=== PATIENT | male | born 1955 | race Caucasian/White ===

== ENCOUNTER 2016-11-18 10:08 | Observation (INO) | payer BC ==
--- NOTE | ~2016-11-18 | EKG ---
PATIENT: IVANNA NUNN UNIT #: [id number] Ventricular Rate: 97 BPM Atrial Rate: 97 BPM P-R Interval: 140 ms QRS Duration: 88 ms Q-T Interval: 360 ms QTC Calculation(Bezet): 457 ms P [place]: 41 degrees Calculated R [place]: 49 degrees Calculated T [place]: 15 degrees Diagnosis Line: Normal sinus rhythm Diagnosis Line: Normal ECG Diagnosis Line: No previous ECGs available Diagnosis Line: Confirmed by RAMBO CID MD ([id number]) on Diagnosis Line: 11/19/2016 3:59:11 PM INTERPRETING MD: LETI
--- NOTE | ~2016-11-18 | HP ---
Unit #: [id number] #: [id number] Patient: IVANNA NUNN [id number] [address] [place], [place] [address] [id number] I MR#: [id number] NAME: IVANNA NUNN ROOM: 316 Age: 61 Sex: M Admission Date: 11/18/2016 : 1955 Attending Physician: Naa Finley M.D. Primary Care Physician: No Primary Care Physician HISTORY AND PHYSICAL CHIEF COMPLAINT Dizziness. HISTORY OF PRESENT ILLNESS The patient is a 61-year-old male with a history of hypertension, brought to the emergency room complaining of the feeling off balance associated with the trouble seeing. The patient was also found to have slurred speech at the time of arrival. Patient had a CT of the head that showed the hypotonation in the right basal ganglia concerning for the old lacunar strokes. The patient is being admitted for the above reasons. The patient denies any history of trauma. The patient stated the patient has been having the symptoms, started yesterday and have been gradually worsening to the point that the patient was brought to the emergency room. PAST MEDICAL HISTORY History of hypertension. PAST SURGICAL HISTORY None. HOME MEDICATIONS None. ALLERGIES No known drug allergies. SOCIAL HISTORY Patient used to smoke tobacco 30 years ago for a [id number] history and alcohol, drinks beers on occasion. No history of illicit drug abuse. FAMILY HISTORY Reviewed and none. REVIEW OF SYSTEMS Fourteen-point review of symptoms performed and only pertinent positive findings as described above, remaining are negative. PHYSICAL EXAMINATION GENERAL APPEARANCE: On examination the patient is lying on a bed not in acute distress. VITAL SIGNS: Temperature 97.7, pulse 101, respiratory rate 16, blood pressure 238/130, sating 100% at room air. HEENT: Head atraumatic/normocephalic. Pupils equal, round and reacting Unit #: [id number] #: [id number] Patient: IVANNA NUNN to light and accommodation. Extraocular movements are intact. NECK: Supple. LUNGS: Decreased air entry at the bases. HEART: Regular rate and rhythm. ABDOMEN: Soft, positive bowel sounds. EXTREMITIES: No cyanosis. No clubbing. NEUROLOGIC: Awake, alert and oriented/. Patient has a dysarthria plus a nystagmus and ataxia. DIAGNOSTIC STUDIES LABORATORY DATA: Lipid profile shows cholecystectomy 332, triglycerides 280, LDL 234 and HDL 42. TSH 2.34, C-reactive protein less than 0.05, glucose 120, sodium 137, potassium 3.7, chloride 103, bicarb 25, glucose 132, BUN 11, creatinine 0.9, AST 22, ALT 27, alkaline phosphatase 67. WBC 14.9, hemoglobin 17, hematocrit 51.4 and platelet 390. IMAGING: MRI of the brain shows no acute intracranial findings and microvascular ischemic changes. CT of the head shows a hypodense area in the right basal ganglia concerning for lacunar strokes. ASSESSMENT 1. Transient ischemic attack, rule out a stroke. 2. Hypertensive urgency. 3. Leukocytosis. PLAN Plan to admit the patient to the observation with the telemetry. Patient has been seen by Neurology and recommended the MRI. Patient will be seen by Cardiology for the hypertensive urgency and the hyperlipidemia and check the lactic acid level and UA and initiate the sepsis protocol as the lactate is high and further recommendations will follow. Dictated by Diane Pa/robert TD: 11/18/2016 16:57 JOB #: [id number] HISTORY AND PHYSICAL Page 1 of 1 X NAA FINLEY MD X HISTORY AND PHYSICAL
--- NOTE | ~2016-11-18 | EKG ---
PATIENT: IVANNA NUNN UNIT #: [id number] Ventricular Rate: 62 BPM Atrial Rate: 62 BPM P-R Interval: 144 ms QRS Duration: 82 ms Q-T Interval: 416 ms QTC Calculation(Bezet): 422 ms P [place]: 39 degrees Calculated R [place]: 44 degrees Calculated T [place]: 27 degrees Diagnosis Line: Normal sinus rhythm Diagnosis Line: Normal ECG Diagnosis Line: When compared with ECG of 18-NOV-2016 10:34, Diagnosis Line: (unconfirmed) Diagnosis Line: Vent. rate has decreased BY 35 BPM Diagnosis Line: Confirmed by RAMBO CID MD ([id number]) on Diagnosis Line: 11/19/2016 4:13:10 PM INTERPRETING MD: LETI
--- NOTE | ~2016-11-18 | DS ---
Unit #: [id number] #: [id number] Patient: IVANNA NUNN [id number] [facility] [address]. [place], [place] [address] [id number] MR#: [id number] NAME: IVANNA NUNN ROOM: 316 Age: 61 Sex: M Admission Date: 11/18/2016 : 1955 Discharge Date: 11/19/2016 Attending Physician: Idalmis Fairbanks M.D. Primary Care Physician: No Primary Care Physician DISCHARGE SUMMARY DIAGNOSIS ON ADMISSION Transient ischemic attack. DIAGNOSES ON DISCHARGE 1. Transient ischemic attack. 2. History of hypertension. 3. Left vertebral artery stenosis. 4. Basilar artery stenosis. 5. PICA stenosis. CONSULTATIONS Dr. Bergeron in neurology consultation. DIAGNOSTIC STUDIES LABS: The patient's creatinine is 0.7, sodium 140, potassium 3.5. The patient's total cholesterol is 332, triglycerides 280, LDL 234, HDL 42. AST and ALT are within normal limits. WBC is 14.9, hemoglobin 15.5, platelet count 338. Hemoglobin A1C was 5.5. Troponin is less than 0.03. Vitamin B12 level was 368. IMAGING: The patient's MRI of the brain did not reveal any evidence of acute stroke. MRA of neck did not reveal any hemodynamically significant stenosis in bilateral internal carotid arteries. MRA head, as per neurology, had left vertebral stenosis, basilar artery stenosis and PICA stenosis. HOSPITAL COURSE This 61-year-old patient was admitted to [facility] with TIA. Details are as per admission H and P. The patient had extensive workup done, which did not reveal acute stroke, but the patient has left vertebral artery and basilar artery stenosis. Dr. Bergeron has recommended the patient to follow up with [facility] stroke team for vertebral and basilar artery stenosis. He has also added Plavix to his regimen. The patient is feeling much better and is anxious to go home. I have discussed with the patient and his , and she stated that the patient can follow up on leukocytosis with his primary care physician. The patient does not have any signs or symptoms of active infection. His urinalysis was negative. The patient did not have any chest x-ray, but Unit #: [id number] #: [id number] Patient: IVANNA NUNN he does not have any symptoms of pneumonia. Therefore, we will have the patient follow up with primary care physician in 4-5 days and have a CBC and a BMP done for followup on leukocytosis. The patient is also advised to call our office on Tuesday for two-D echo results. The patient is advised to follow up with [facility] stroke team, as recommended by Dr. Bergeron. The patient stated that he does not have a family doctor, but the patient's goes to [facility], and she will make him an appointment there. I also discussed with the patient's daughter, and she will ensure that the patient follows up with primary care with a repeat CBC done. She is aware of possibility of underlying malignancies, like leukemia. The patient is advised to have a fasting lipid profile and LFTs with primary care physician in 6 weeks. MEDICATIONS ON DISCHARGE 1. Norvasc 2.5 mg p.o. daily. 2. Metoprolol 25 mg p.o. b.i.d. 3. Lipitor 80 mg p.o. q.h.s. 4. Enteric-coated aspirin 325 mg p.o. daily. 5. Plavix 75 mg p.o. daily. Dictated by... Diane Washburn/nick TD: 11/22/2016 09:49 JOB #: [id number] CC: [facility]roke Team. Robert Ribera M.D. DISCHARGE SUMMARY Page 1 of 1 X Idalmis Fairbanks MD DISCHARGE SUMMARY
--- NOTE | ~2016-11-18 | CT71 ---
[facility] A Service of [facility] RADIOLOGY TEXT RESULTS PATIENT: IVANNA NUNN LOCATION: [facility] : 55 UNIT #: [id number] AGE: [address]: Idalmis Fairbanks MD SEX: M ORDER DR: [id number] [facility] [address] [place], [place] [address] [id number] I MR#: [id number] Acc #: [id number] NAME: IVANNA NUNN. : 1955 SEX: M STUDY DATE/TIME: 11/18/2016 11:01 UNIT: [facility] PCU ROOM: [facility] STUDY DESCRIPTION: CT Head Wo Contrast Attending Physician: Nahun Finley M.D. Ordering Physician: Hector Ng D.O. Primary Care Physician: No Primary Care Physician MEDICAL IMAGING REPORT This report is preliminary unless electronic signature is present EXAM CT brain without contrast media HISTORY Unable to focus dizzy for 3 days, nausea and vomiting. TECHNIQUE Axial imaging of the brain was performed without contrast media. This CT exam was performed with one or more of the following radiation dose reduction techniques: automatic control, adjustment of mA and/or kV according to patient size, and iterative reconstruction. COMPARISON There are no prior studies for comparison. FINDINGS Ventricular size and configuration is normal. No intra or extraaxial mass lesions, fluid collections or mass effect are seen. There is an area of low attenuation identified in the right basal ganglia. This conceivably could represent a prominent perivascular space. There is no mass effect. There is no evidence of hemorrhage. Paranasal sinuses and mastoid air cells are clear. CONCLUSION Area of low attenuation in the right basal ganglia which could represent either a small chronic lacunar infarction or more likely a prominent perivascular space. CT of the brain is otherwise normal Dictated by... Wes Aly M.D. THIS IS AN ELECTRONICALLY VERIFIED REPORT [facility] A Service of [facility] RADIOLOGY TEXT RESULTS PATIENT: IVANNA NUNN LOCATION: [facility] 316 : 55 UNIT #: [id number] AGE: [address]: Idalmis Fairbanks MD SEX: M ORDER DR: Wes Aly M.D. at 11/23/2016 7:14 AM MICHEL/abdullahi TD: 11/18/2016 13:07 JOB #: [id number] MEDICAL IMAGING REPORT Page 1 of 1 COPY
--- NOTE | ~2016-11-18 | MR122 ---
[facility] A Service of [facility] RADIOLOGY TEXT RESULTS PATIENT: IVANNA NUNN LOCATION: A 316-01 : 55 UNIT #: [id number] AGE: [address]: Idalmis Fairbanks MD SEX: M ORDER DR: [id number] [facility] [address] [place], [place] [address] [id number] I MR#: [id number] Acc #: [id number] NAME: IVANNA NUNN : 1955 SEX: M STUDY DATE/TIME: 11/18/2016 14:27 UNIT: A PCU ROOM: [facility] STUDY DESCRIPTION: MR MRA Head Wo Contrast Attending Physician: Nahun Finley M.D. Ordering Physician: Jesus Bergeron M.D. Primary Care Physician: No Primary Care Physician MRI CENTER REPORT This report is preliminary unless electronic signature is present. EXAM MR angiogram of the head, without contrast, 11/18/2016. COMPARISON MRI brain and MRA neck, 11/18/2016. HISTORY Slurred speech and dysarthria with imbalance for the last 1-2 days. Cannot focus, dizziness and chills. FINDINGS Motion artifact limits evaluation of the source images and, hence, the reformats. Visualized bilateral intracranial internal carotid arteries and basilar artery demonstrate irregularity, related to varying degrees of atherosclerotic disease. There is probably mild to moderate focal short segment of stenosis involving the mid to distal left petrous ICA (short segment) and proximal basilar artery involving a short 5-mm or smaller segment. No significant distal flow limitation is seen. Bilateral anterior and middle cerebral arteries are grossly unremarkable without severe stenosis. Mild atherosclerotic disease cannot be excluded. Small A-COM is seen. Well-defined PCOMs are not seen. Bilateral posterior cerebral arteries demonstrate mild focal tiny segment of stenosis in the presumed right P1-P2 junction. No distal flow limitation. The right vertebral artery feeds the basilar artery. Left vertebral artery is very hypoplastic, and it further significantly decreases after the takeoff of the left PICA. IMPRESSION 1. Focal short segment of moderate stenosis is suspected in the proximal basilar artery and probably mild to moderate stenosis in the short mid aspect of the left petrous ICA, extending towards the distal portion close to the cavernous segment. [facility] A Service of [facility] RADIOLOGY TEXT RESULTS PATIENT: IVANNA NUNN LOCATION: C3A 316-01 : 55 UNIT #: [id number] AGE: [address]: Idalmis Fairbanks MD SEX: M ORDER DR: 2. Left vertebral artery is not well-seen. It is probably very hypoplastic. It further decreases in caliber significantly after the takeoff of the left PICA. This could be related to congenital appearance. Superimposed atherosclerotic disease cannot be excluded. 3. Mild short tiny segment of mild to moderate stenosis is seen in the right posterior cerebellar artery, at the presumed P1-PT junction. Right P-COM is not seen. 4. No significant aneurysm or arteriovenous malformation. Dictated by... Rios Taylor M.D. THIS IS AN ELECTRONICALLY VERIFIED REPORT Rios Taylor M.D. at 11/22/2016 10:25 PM CPR/mona TD: 11/18/2016 16:48 JOB #: [id number] MRI CENTER REPORT Page 1 of 1 COPY
--- NOTE | ~2016-11-18 | CO ---
Unit #: [id number] #: [id number] Patient: IVANNA NUNN [id number] [facility]. [address] [place], [place] [address] [id number] I MR#: [id number] NAME: IVANNA NUNN. ROOM: [facility] Age: 61 Sex: M Admission Date: 11/18/2016 : 1955 Attending Physician: Idalmis Fairbanks M.D. Primary Care Physician: No Primary Care Physician Consultation Date: 11/19/2016 CONSULTATION REPORT REASON FOR CONSULTATION Hypertension. HISTORY OF PRESENT ILLNESS This is a 61-year-old white male, new to our practice, with no significant past medical history. 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 He does not take any medications at home. He has no known past medical history. He is reformed smoker and quit approximately 30 years ago. He does have a history of heavy alcohol abuse, but states that he only drinks occasionally now. The patient presented to the hospital with complaints of not feeling well. He states for the past day and a half he has been feeling off balance and unsteady on his feet. He has also had a visual impairment, but no loss of vision. His family noticed that he was slurring his speech. He denies any recent illness. There are no reports of fever or chills. Denies chest pain, shortness of breath, PND or orthopnea. There are no reports of palpitations. In the emergency department his temperature was 97.7, pulse 101, respiratory rate 16 and blood pressure 238/130 with an O2 saturation of 100% on room air. He was given four baby aspirins and metoprolol. Labs revealed a normal CBC except for high hemoglobin of 17. White blood cell count was elevated at 14.9. The patient denies a cough, flank pain or difficulty with urination. Renal function and electrolytes were normal. Glucose level is 132. Initial cardiac enzymes were negative. EKG revealed normal sinus rhythm with nonspecific T wave changes in the inferior leads. Neurology was consulted for possible cerebrovascular accident. Initial CT of the head was concerning for a lacunar infarct. MRI and MRA were completed and final results are pending. Cardiology was consulted for management of hypertension. PAST MEDICAL HISTORY 1. No significant past medical history. The patient does not follow with a primary care provider. 2. History of alcohol abuse. 3. Reformed tobacco abuse. PAST SURGICAL HISTORY None. SOCIAL HISTORY The patient works fulltime as a commercial roofer. He is a reformed smoker and quit Unit #: [id number] #: [id number] Patient: IVANNA NUNN approximately 30 year ago. There are no reports of illicit drug use. He occasionally drinks beer. He used to be a heavy drinker and drank a 12-pack of beer per day. That was a few years ago. FAMILY HISTORY Significant for hypertension and hyperlipidemia. ALLERGIES No known drug allergies. HOME MEDICATIONS None. REVIEW OF SYSTEMS Ten point review of systems is negative except for details noted above in history of present illness. PHYSICAL EXAMINATION GENERAL: This is a 61-year-old white male in no acute distress. VITALS: Temperature 97.4, pulse 81, blood pressure 185/101. SKIN: Warm and dry. NECK: Supple. No jugular venous distension. No hepatojugular reflux. No carotid bruits auscultated. LUNGS: Bilateral breath sounds have good entry throughout all lung back. Respirations even and unlabored. No rales, rhonchi or wheezes. HEART: S1 and S2. Regular rate and rhythm. No murmurs, rubs or gallops. ABDOMEN: Soft, nontender and nondistended. Positive bowel sounds auscultated all four quadrants. No ascites noted. EXTREMITIES: Bilateral extremities have no pretibial pitting edema. Dorsalis pedis and posterior tibial pulses 2+. Capillary refill less than 3 seconds. DIAGNOSTIC STUDIES IMAGING: CT of the head revealed concern for lacunar infarct. Report pending. MRI of the brain and MRA of the neck completed, but pending. LABORATORY: White blood cell count 14.9, hemoglobin 17, hematocrit 51.4, platelets 390. Sodium 137, potassium 3.7, chloride 103, CO2 25, BUN 11, creatinine 0.9, glucose 132, AST 22, ALT 27, alkaline phosphatase 57. Total cholesterol 332, triglycerides 280, LDL 234, HDL 42, TSH 2.34. Urinalysis negative. CARDIOVASCULAR: Electrocardiogram reveals sinus rhythm with nonspecific ST-T wave changes in the inferior leads. QTC 457 msec. ASSESSMENT 1. Malignant hypertension. 2. Rule out cerebrovascular accident. 3. Hyperlipidemia, uncontrolled. 4. History of alcohol abuse. 5. Reformed tobacco abuse. 6. Leukocytosis. PLAN 1. The patient presented to the hospital with complaints of visual impairment and unsteady gait. He is admitted for possible Unit #: [id number] #: [id number] Patient: IVANNA NUNN cerebrovascular accident. Neurology was consulted. 2. Cardiology was consulted due to hypertension. The patient has been started on metoprolol and blood pressure is improving, but is not at goal. Will start Norvasc with parameters for further management. 3. The patient's cholesterol is extremely high and he will be started on Lipitor at 80 mg p.o. at bedtime. 4. Two-dimensional echocardiogram will be ordered to assess IV function and valves. 5. The patient denies chest pain and there is no evidence of congestive heart failure on exam. Will trend cardiac enzymes and EKG. 6. The patient has been advised to obtain a primary care provider and to be compliant with recommendations and medications. Dictated by... Estee Orellana APRN for Diane Meyers TD: 11/19/2016 14:00 JOB #: [id number] CONSULTATION REPORT Page 1 of 1 X X CONSULTATION REPORT
--- NOTE | ~2016-11-18 | CO ---
Unit #: [id number] #: [id number] Patient: IVANNA NUNN [id number] [facility] [address] [facility]. [place], [place] [address] [id number] MR#: [id number] NAME: IVANNA NUNN ROOM: 316 Age: 61 Sex: M Admission Date: 11/18/2016 : 1955 Attending Physician: Idalmis Fairbanks M.D. Primary Care Physician: Primary Care Physician No CONSULTATION REPORT JOB NOTE: VERIFY CONSULTING PHYSICIAN. PRIMARY CARE PHYSICIAN Not listed. REASON FOR CONSULT TIA. PATIENT IDENTIFICATION This is a 61-year-old right-handed male, evaluated in room 316 at [facility]. SOURCE OF INFORMATION Obtained from the patient, the patient's at the bedside, as well as medical record. HISTORY OF PRESENT ILLNESS This is a 61-year-old right-handed male with no significant past medical history; however, he has not sought primary medical care in years. He presents to [facility] feeling off balanced, having trouble seeing, and slurred speech. He was last seen while yesterday, thus he was not a candidate for acute intervention with alteplase. He was admitted for further workup and evaluation. Neurology was asked to further evaluate. His CT scan is negative for any acute intracranial abnormalities. Full imaging noted and reviewed. Please see chart. The patient states that he was in his usual state of health until yesterday when he started feeling off balance. He is unable to describe any sensation of actual vertigo or dizziness, but states that he was having trouble being steady. He reports that he also has been exhibiting some trouble with vision, blurred vision, possibly double vision, and also trouble with the speech. His symptoms had continued to get worse, thus he asked his to call 911 to come to the hospital for further evaluation. His at bedside states that she became concerned as he usually refused to go to the hospital as he does not routinely seek medical care. His CBC in the ER showed a white count of 14.9, hemoglobin 17, hematocrit 51.4, and platelet count 390. BMP unremarkable other than glucose of 132, CRP less than 0.5, TSH 2.34. His cholesterol is elevated at 332 and triglycerides are 280 and LDL of 234 as well as HDL of 42. He was given aspirin, loaded with 325 mg in the ER. At the time of my evaluation earlier today, he was exhibiting dysarthria, pretty moderate and also some horizontal nystagmus when looking to the right. He did not appear to have any gaze palsy or cranial nerve palsy or any cranial nerve findings on exam. He did not appear to have any extremity ataxia or central ataxia, but was very dysarthric, and nystagmus was noted. I could not reproduce Unit #: [id number] #: [id number] Patient: IVANNA NUNN any diplopia or visual field cut on exam. The patient was very anxious. We sent him for stat MR of the brain, MRA of the head and neck, all imaging reports are pending. However, his MR of the brain does not show any obvious acute or subacute infarct. Dr. Bergeron has reviewed that imaging. MR angiogram of the head and neck appears to have some atherosclerotic disease concerning the posterior circulation, but will await radiology report for definitive findings. Upon followup with the patient to re-evaluate with Dr. Bergeron, the patient's symptoms have fully resolved. His exam is now currently nonfocal. He denies any exacerbating or alleviating factors or any other associated symptoms. PAST MEDICAL HISTORY None. The patient has not sought routine medical care in years. SOCIAL HISTORY He is a reformed smoker. He quit several years ago. He denies alcohol abuse or illicit drug use. He is to his , and they live together. FAMILY HISTORY Positive for stroke in his mother. ALLERGIES No known drug allergies. HOME MEDICATIONS None. REVIEW OF SYSTEMS A 14-point review of systems was done. Pertinent positives as discussed above, otherwise negative. PHYSICAL EXAMINATION VITAL SIGNS: Temperature 97.4, pulse 81, respirations 20, blood pressure 185/101, blood pressure in the ER on arrival was 238/130, oxygen saturation 98%, height 5 feet 7 inches, weight 139 pounds, BMI 31. NEUROLOGIC: The patient is currently awake, alert, and oriented to person, place, and time as well as events. No right or left confusion. No finger agnosia. No aphasia, dysarthria, or apraxia. Cranial nerve exam demonstrates full back of vision. Eyes are conjugate without ptosis or nystagmus. Extraocular movements are intact. Sensation of face and scalp is intact. Strength of muscles of the facial expression is intact. Hearing is intact to finger rub and conversation. Tongue is midline. Uvula is midline. Palate elevation is normal. Head turning and shoulder shrug are unremarkable. Neck is supple. Motor exam, he demonstrates normal bulk and tone. Strength is equal 5/5 in all extremities. Sensory exam intact. No extinction appreciated. Gait deferred. Romberg deferred. Reflexes, unable to elicit. Toes are equivocal. He has no central ataxia when sitting up at the side of the bed. I did not evaluate his gait given feelings of being off balance upon initial evaluation. Coordination, otherwise unremarkable. DIAGNOSTIC STUDIES LABORATORY RESULTS: As discussed above. IMAGING STUDIES: As discussed above. IMPRESSION Unit #: [id number] #: [id number] Patient: IVANNA NUNN 1. Dysarthria, nystagmus, as well as being off balanced. Symptoms now have resolved. Consider vestibulopathy, though cannot rule out vertebrobasilar insufficiency. The patient also presented with significantly elevated blood pressure. He was clearly dysarthric and had horizontal nystagmus upon initial evaluation, that is now resolved. 2. Reformed smoker. 3. Leukocytosis. 4. Elevated glucose. 5. Uncontrolled hypertension. The patient has been started on Lopressor. He has also been started on aspirin. PLAN We will await imaging and follow up with the patient regarding MR angiogram results. We will continue bed rest at this time and a full workup given his presentation and to assess for risk factors. We will check B12 folate. We checked the lipid profile. He will need to be on cholesterol medications as well as aspirin. We will also check hemoglobin A1c as well. Further recommendations to be made pending workup and further clinical course. Please call for any questions or issues. Dictated by... nAna Ziegler A.P.R.N. for Diane Michelle/yvonne TD: 11/20/2016 03:39 JOB #: [id number] CONSULTATION REPORT Page 1 of 1 X Anna Ziegler APRN X CONSULTATION REPORT
--- NOTE | ~2016-11-18 | MR18 ---
[facility] A Service of [facility] & [facility] RADIOLOGY TEXT RESULTS PATIENT: IVANNA NUNN LOCATION: [facility] 316-01 : 55 UNIT #: [id number] AGE: [address]: NAA FINLEY MD SEX: M ORDER DR: [id number] [facility] [address] [facility] [address] [place], [place] [address] [id number] I MR#: [id number] Acc #: [id number] NAME: IVANNA NUNN : 1955 SEX: M STUDY DATE/TIME: 11/18/2016 14:10 [facility] ROOM: 316 STUDY DESCRIPTION: MR Brain Wo Contrast Attending Physician: Naa Finley M.D. Ordering Physician: Jesus Bergeron M.D. Primary Care Physician: No Primary Care Physician MRI CENTER REPORT This report is preliminary unless electronic signature is present. EXAM MRI of the brain without contrast, dated 11/18/16. COMPARISON CT head without contrast dated 11/18/16. MRA head and neck dated 11/18/16. HISTORY Patient has slurred speech, dysarthria and imbalance in the last 1-2 days, possible TIA. FINDINGS Multisequence, multiplanar imaging of the brain was obtained without contrast. GFR measured greater than 60. 18 mL of MultiHance was administered intravenously. No acute stroke, space-occupying intracranial mass, mass effect, midline shift or hydrocephalus. Punctate less than 5 mm 3-5 hyperintense T2 signal lesions are noted in the white matter, predominately in the subcortical and to a lesser degree some vague signal is noted in biparietal, periventricular white matter. These are nonspecific. Vascular flow voids of the major cerebral arteries and dural venous sinuses are not completely occluded in these thicker slices. S-shaped nasal septal deviation is seen with relatively well-aerated paranasal sinuses. Orbits with the ocular structures and mastoids are unremarkable except for minimal right mastoid mucosal thickening. Thick slices through the sella with the pituitary gland, pineal region and upper cervical spine are unremarkable. IMPRESSION 1. No acute intracranial abnormality like acute stroke. 2. Less than 5 mm small, less than 5 hyperintense T2 signal lesions are noted in the white matter. Based on age and statistics, they could be related to minimal chronic microvascular ischemic change. Nonspecific. [facility] A Service of [facility] & [facility] RADIOLOGY TEXT RESULTS PATIENT: IVANNA NUNN LOCATION: [facility] 316-01 : 55 UNIT #: [id number] AGE: [address]: NAA FINLEY MD SEX: M ORDER DR: Dictated by... Rios Taylor M.D. THIS IS AN ELECTRONICALLY VERIFIED REPORT Rios Taylor M.D. at 11/18/2016 6:08 PM CPR/jt TD: 11/18/2016 17:24 JOB #: [id number] MRI CENTER REPORT Page 1 of 1 COPY
--- NOTE | ~2016-11-18 | MR133 ---
[facility] A Service of [facility] RADIOLOGY TEXT RESULTS PATIENT: IVANNA NUNN LOCATION: [facility] 316- : 55 UNIT #: [id number] AGE: [address]: NAA FINLEY MD SEX: M ORDER DR: [id number] [facility] [address]. [place], [place] [address] [id number] I MR#: [id number] Acc #: [id number] NAME: IVANNA NUNN : 1955 SEX: M STUDY DATE/TIME: 11/18/2016 14:27 UNIT: [address] ROOM: [facility] STUDY DESCRIPTION: MR MRA Neck WWo Contrast Attending Physician: Naa Finley M.D. Ordering Physician: Jesus Bergeron M.D. Primary Care Physician: No Primary Care Physician MRI CENTER REPORT This report is preliminary unless electronic signature is present. EXAM MR angiogram of the neck with and without contrast dated 11/18/2016. COMPARISON MRI brain and MRA head dated 11/18/2016. HISTORY Slurred speech, dysarthria, imbalance recently for the last 2 days. Dizziness and chills. FINDINGS Source and 3D reconstruction MIP images of the neck arteries were obtained with and without contrast as per the protocol. 18 mL of MultiHance was administered intravenously. 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 Congenital variant. Visualized bilateral common, internal, and external carotid arteries demonstrate expected course and signal. Portions of the left mid to distal ICA appear slightly smaller when compared to the right. No measurable obvious proximal stenosis is seen. Right vertebral artery is dominant. Bilateral vertebral arteries demonstrate expected course, caliber, and flow. Bilateral external carotid arteries are unremarkable. IMPRESSION No hemodynamically flow-limiting significant stenosis in bilateral internal carotid artery bulbs per NASCET criteria. Dictated by... Rios Taylor M.D. [facility] A Service of [facility] RADIOLOGY TEXT RESULTS PATIENT: IVANNA NUNN LOCATION: [facility] 316-01 : 55 UNIT #: [id number] AGE: [address]: NAA FINLEY MD SEX: M ORDER DR: THIS IS AN ELECTRONICALLY VERIFIED REPORT Rios Taylor M.D. at 11/18/2016 6:08 PM CPR/tmw TD: 11/18/2016 16:51 JOB #: [id number] MRI CENTER REPORT Page 1 of 1 COPY
[2016-11-18 10:46] LABS: BASOPHIL# 0.1 X10e3 (0-0.3); BASOPHIL% 0.4 % (0-2.5); DIFF IND NO; EOSINOPHIL# 0.1 X10e3 (0-0.7); EOSINOPHIL% 0.5 % (0.0-7.0); HEMATOCRIT 51.4 % (38.0-50.0); LYMPHOCYTE% 26.6 % (17.0-45.0); MEAN CELL VOLUME 83.7 FL (83-96); MEAN CORPUSCULAR HEMOGLOBIN 27.8 PG (28-34); MEAN CORPUSCULAR HGB CONC 33.1 g/dL (30-36); MEAN PLATELET VOLUME 6.6 FL (6.5-11.5); MONOCYTE# 0.7 X10e3 (0-1.0); MONOCYTE% 4.4 % (3.0-12.0); NEUTROPHIL# 10.2 X10e3 (1.5-7.1); NEUTROPHIL% 68.1 % (40-75); PLATELET COUNT 390 X10e3 (140-420); RED BLOOD COUNT 6.14 X10e (3.90-5.60); RED CELL DISTRIBUTION WIDTH 13.3 % (11.0-15.5); WHITE BLOOD COUNT 14.9 X10e3 (4.0-10.5)
[2016-11-18 11:03] LABS: ALBUMIN SERUM 4.5 g/dL (3.5-5.0); BILIRUBIN, DIRECT 0.2 mg/dL (0.0-0.2); BILIRUBIN,INDIRECT 1.4 mg/dL (0.0-0.9); BILIRUBIN,TOTAL 1.6 mg/dL (0.2-2.0); BUN/CREATININE RATIO 12.22; CALCIUM SERUM 9.2 mg/dL (8.4-10.2); CREATININE SERUM 0.9 mg/dL (0.6-1.4); GLOM FILT RATE Estimated 91.9 mL/min (>60); POTASSIUM 3.7 mmol/L (3.5-5.1)
[2016-11-18] MEDS ORDERED: NO MEDICATIONS (13:03)
[2016-11-18 14:21] LABS: CHOLESTEROL 332 mg/dL (0-200); HDL CHOLESTEROL 42 mg/dL (29-75); LDL/HDL RATIO 6 RATIO (0-4); TRIGLYCERIDES 280 mg/dL (10-160)
[2016-11-18 14:22] LABS: LDL CHOLESTEROL 234 mg/dL (-130)
[2016-11-18 16:58] LABS: CK TOTAL 41 IU/L (36-174)
[2016-11-18 21:51] LABS: URINE SOURCE CLEAN CATCH
[2016-11-18 21:56] LABS: URINE APPEARANCE CLEAR; URINE BILIRUBIN NEG (NEG); URINE BLOOD NEG (NEG); URINE COLOR YELLOW; URINE GLUCOSE NEG (NEG); URINE KETONE NEG (NEG); URINE LEUKOCYTE ESTERASE NEG (NEG); URINE NITRATE NEG (NEG); URINE PH 7.5 (5-8); URINE PROTEIN NEG (NEG); URINE SPECIFIC GRAVITY 1.017 (1.003-1.035)
[2016-11-18 21:59] LABS: CULTURE INDICATED? NO
[2016-11-18 23:14] LABS: CK TOTAL 51 IU/L (36-174)
[2016-11-19 06:44] LABS: HEMATOCRIT 47.1 % (38.0-50.0); HEMOGLOBIN 15.5 gm/dL (13.0-16.0); MEAN CELL VOLUME 84.9 FL (83-96); MEAN CORPUSCULAR HEMOGLOBIN 27.9 PG (28-34); MEAN CORPUSCULAR HGB CONC 32.8 g/dL (30-36); MEAN PLATELET VOLUME 6.9 FL (6.5-11.5); RED BLOOD COUNT 5.55 X10e (3.90-5.60); RED CELL DISTRIBUTION WIDTH 13.4 % (11.0-15.5); WHITE BLOOD COUNT 14.9 X10e3 (4.0-10.5)
[2016-11-19 07:26] LABS: BUN/CREATININE RATIO 15.71; CALCIUM SERUM 8.7 mg/dL (8.4-10.2); CREATININE SERUM 0.7 mg/dL (0.6-1.4); GLOM FILT RATE Estimated 101.9 mL/min (>60); POTASSIUM 3.5 mmol/L (3.5-5.1)
[2016-11-19] MEDS ORDERED: NORVASC2.5 MG PO (14:42)
[2016-11-19] MEDS ORDERED: ATORVASTATIN CA80 MG PO (14:43)
[2016-11-19] MEDS ORDERED: LOPRESSOR PO (14:43)
[2016-11-19] MEDS ORDERED: CLOPIDOGREL BIS75 MG PO (14:44)
[2016-11-19] MEDS ORDERED: ASPIRIN ENTERI325 M1 PO (14:44)
== END 2016-11-19 16:33 | disposition home or self-care (01) | DRG 69 ==
LOC: CED 10:08 → CEDOF 11:40 → C3A PCU 11:40 → CEDOF 11:45 → CED 11:45 → C3A PCU 12:21 → CEDOF 12:21 → C3A PCU 11-19 06:38
PROVIDERS: Emergency Medicine; Internal Medicine; Psychiatry & Neurology Neurology
DX: G45.9 Transient cerebral ischemic attack, unspecified (principal); I65.1 Occlusion and stenosis of basilar artery; I65.02 Occlusion and stenosis of left vertebral artery; I66.3 Occlusion and stenosis of cerebellar arteries; D72.829 Elevated white blood cell count, unspecified; I16.0 Hypertensive urgency; H55.09 Other forms of nystagmus; E78.5 Hyperlipidemia, unspecified; Z87.891 Personal history of nicotine dependence; R73.9 Hyperglycemia, unspecified; Z82.49 Family history of ischemic heart disease and other diseases of the circulatory system; Z87.898 Personal history of other specified conditions; Z82.3 Family history of stroke
CPT/HCPCS: 36415; 70450; 70544; 70549; 70551; 80048; 80061; 80076; 81003; 82550; 82607; 82746; 82947; 83036; 84443; 84484; 85025; 85027; 86140; 92523-GN; 93005; 93306; 94760; 96374; 97116; 97162; 97166; 97535; 99285; A9577; G0378; G9162-GN; G9163-GN; G9164-GN; J2060

== ENCOUNTER 2016-11-19 18:01 | Emergency (ER) | payer BC ==
--- NOTE | ~2016-11-19 | EKG ---
PATIENT: IVANNA NUNN UNIT #: [id number] Ventricular Rate: 75 BPM Atrial Rate: 75 BPM P-R Interval: 146 ms QRS Duration: 84 ms Q-T Interval: 384 ms QTC Calculation(Bezet): 428 ms P [place]: 47 degrees Calculated R [place]: 32 degrees Calculated T [place]: 19 degrees Diagnosis Line: Normal sinus rhythm Diagnosis Line: Normal ECG Diagnosis Line: When compared with ECG of 19-NOV-2016 05:49, Diagnosis Line: No significant change was found Diagnosis Line: Confirmed by RAMBO CID MD ([id number]) on Diagnosis Line: 11/21/2016 10:42:51 AM INTERPRETING MD: LETI
--- NOTE | ~2016-11-19 | CT72 ---
[facility] A Service of [facility] RADIOLOGY TEXT RESULTS PATIENT: IVANNA NUNN LOCATION: [facility] : 55 UNIT #: [id number] AGE: [address]: Judy Peterson MD SEX: M ORDER DR: [id number] [facility] [address] [facility]. [place], [place] [address] [id number] E MR#: [id number] Acc #: [id number] NAME: IVANNA NUNN : 1955 SEX: M STUDY DATE/TIME: 11/19/2016 18:45 UNIT: [facility] ROOM: STUDY DESCRIPTION: CT Head Wo Contrast Stroke Attending Physician: Judy Peterson M.D. Ordering Physician: Judy Peterson M.D. Primary Care Physician: No Primary Care Physician MEDICAL IMAGING REPORT This report is preliminary unless electronic signature is present EXAM CT head, noncontrast, 11/19/16. HISTORY 61-year-old male in the ED with new onset slurred speech and loss of balance beginning tonight at about 1700 hours. He was reportedly discharged from the hospital earlier today after a previous stroke evaluation. TECHNIQUE CT examination of the head without IV contrast. CT exam time [address] interpretation time [address] exam was performed with one or more of the following radiation dose reduction techniques: automatic exposure control, adjustment of mA and/or kV according to patient size, and iterative reconstruction. FINDINGS No acute intracranial abnormality is demonstrated. Small chronic lacunar infarct in the right lentiform nucleus. Atheromatous calcification in the carotid siphons. No evidence of intracranial hemorrhage, mass, mass effect, cerebral edema or hydrocephalus. No significant change since the previous exam obtained yesterday. IMPRESSION 1. No acute intracranial abnormality. 2. Tiny chronic lacunar infarct in the right lentiform nucleus. 3. No change since yesterday. Dictated by... Rj Terrell M.D. [facility] A Service [facility] RADIOLOGY TEXT RESULTS PATIENT: IVANNA NUNN LOCATION: [facility] : 55 UNIT #: [id number] AGE: [address]: Judy Peterson MD SEX: M ORDER DR: THIS IS AN ELECTRONICALLY VERIFIED REPORT Rj Terrell M.D. at 11/23/2016 10:33 AM PERLA/saskia TD: 11/19/2016 23:26 JOB #: [id number] MEDICAL IMAGING REPORT Page 1 of 1 COPY
[~2016-11-19 18:01] MED LIST: ASPIRIN ENTERI325 M1 PO; ATORVASTATIN CA80 MG PO; CLOPIDOGREL BIS75 MG PO; LOPRESSOR PO; NO MEDICATIONS; NORVASC2.5 MG PO
[2016-11-19 18:43] LABS: BASOPHIL# 0.1 X10e3 (0-0.3); BASOPHIL% 0.5 % (0-2.5); EOSINOPHIL# 0.1 X10e3 (0-0.7); EOSINOPHIL% 0.7 % (0.0-7.0); HEMATOCRIT 51.2 % (38.0-50.0); HEMOGLOBIN 16.8 gm/dL (13.0-16.0); LYMPHOCYTE# 3.6 X10e3 (1.0-3.5); LYMPHOCYTE% 20.9 % (17.0-45.0); MEAN CELL VOLUME 84.9 FL (83-96); MEAN CORPUSCULAR HEMOGLOBIN 27.9 PG (28-34); MEAN CORPUSCULAR HGB CONC 32.9 g/dL (30-36); MEAN PLATELET VOLUME 6.6 FL (6.5-11.5); MONOCYTE# 0.9 X10e3 (0-1.0); MONOCYTE% 5.2 % (3.0-12.0); NEUTROPHIL# 12.7 X10e3 (1.5-7.1); NEUTROPHIL% 72.7 % (40-75); PLATELET COUNT 410 X10e3 (140-420); RED BLOOD COUNT 6.03 X10e (3.90-5.60); RED CELL DISTRIBUTION WIDTH 13.3 % (11.0-15.5); WHITE BLOOD COUNT 17.4 X10e3 (4.0-10.5)
[2016-11-19 18:47] LABS: DIFF IND YES
[2016-11-19 18:58] LABS: PLATELET ESTIMATE INCREASED (NORMAL); RBC NORMAL YES
[2016-11-19 18:59] LABS: INR 1.1; PARTIAL THROMBOPLASTIN TIME 30.1 SECONDS (23.5-31.3); PROTHROMBIN TIME (PATIENT) 11.4 SECONDS (10.0-11.7)
[2016-11-19 19:16] LABS: ALBUMIN SERUM 4.5 g/dL (3.5-5.0); BILIRUBIN, DIRECT 0.2 mg/dL (0.0-0.2); BILIRUBIN,INDIRECT 2.3 mg/dL (0.0-0.9); BILIRUBIN,TOTAL 2.5 mg/dL (0.2-2.0); BUN/CREATININE RATIO 13.33; CALCIUM SERUM 9.2 mg/dL (8.4-10.2); CREATININE SERUM 0.9 mg/dL (0.6-1.4); GLOM FILT RATE Estimated 91.9 mL/min (>60); POTASSIUM 3.9 mmol/L (3.5-5.1); PROTEIN TOTAL SERUM 7.8 g/dL (6.0-8.3)
== END 2016-11-19 20:00 | disposition hospice, home (50) ==
LOC: CED 18:01
PROVIDERS: Student in an Organized Health Care Education/Training Program
DX: I63.9 Cerebral infarction, unspecified (principal); R63.0 Anorexia; R27.8 Other lack of coordination; F80.89 Other developmental disorders of speech and language; I10 Essential (primary) hypertension; Z87.891 Personal history of nicotine dependence
CPT/HCPCS: 36415; 70450; 80048; 80076; 82947; 85025; 85610; 85730; 93005; 96365; 99285; J2997